=== PATIENT | female | born 2000 | race Caucasian/White ===

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

== ENCOUNTER 2019-12-29 23:31 | Emergency (ER) | payer BC ==
[2019-12-29 23:36] VITALS: BP 135/79; PULSE 95
[2019-12-30] MEDS: Phenazopyridine 95 MG Tab PO STA (00:07)
[2019-12-30] MEDS: Nitrofurantoin Monohydrate/Macrocrystalline 100 MG Cap PO STA (00:07)
--- NOTE | 2019-12-30 00:08 | EDM.PDOC ---
ED HPI GENERAL MEDICAL PROBLEM - General Chief Complaint: Genitourinary Problem Stated Complaint: burning with urination Time Seen by Provider: 12/29/19 23:53 Source of Information: Reports: Patient History Limitations: Reports: No Limitations - History of Present Illness INITIAL COMMENTS - FREE TEXT/NARRATIVE: This patient is a 19 year old female that presents to the ER with complaint of dysuria. She reports it started at 2pm today. She reports blood with wiping. Onset: Today Onset Date: 12/30/19 Onset Time: 14:00 Duration: Hour(s): (10) Quality: Reports: Burning Severity: Moderate Worsens with: Reports: Other (urination) Associated Symptoms: Reports: No Other Symptoms. Denies: Confusion, Chest Pain, Cough, cough w sputum, Diaphoresis, Fever/Chills, Headaches, Loss of Appetite, Malaise, Nausea/Vomiting, Rash, Seizure, Shortness of Breath, Syncope, Weakness Groin Pain Score (Numeric/FACES): 5 - Related Data Allergies Allergy/AdvReac Type Severity Reaction Status Date / Time No Known Allergies Allergy Verified 12/29/19 23:36 Home Meds: Home Meds Albuterol [IJD: Ventolin HFA] 1 puff INH ASDIRECTED PRN 12/20/15 [History] norgestimate-ethinyl estradioL [Sprintec 28 Day Tablet] 1 tab PO DAILY 12/29/19 [History] Nitrofurantoin Monohyd/M-Cryst [Macrobid 100 mg Capsule] 100 mg PO BID 7 Days #14 capsule 12/30/19 [Rx] Phenazopyridine [Pyridium] 100 mg PO TID PRN #6 tab 12/30/19 [Rx] Past Medical History - Past Health History Medical/Surgical History: Denies Medical/Surgical History Respiratory History: Reports: Other (See Below) Other Respiratory History: Reactive airway disease Psychiatric History: Reports: Anxiety, Depression Social & Family History - Family History Family Medical History: Noncontributory Cardiac: Reports: Hypertension - Tobacco Use Smoking Status *Q: Never Smoker - Caffeine Use Caffeine Use: Reports: None - Recreational Drug Use Recreational Drug Use: No - Sexual History Sexual History: Reports: None - Living Situation & Occupation Living situation: Reports: Single, with Family Occupation: Student ED ROS GENERAL - Review of Systems Review Of Systems: See Below Constitutional: Reports: No Symptoms HEENT: Reports: No Symptoms Respiratory: Reports: No Symptoms Cardiovascular: Reports: No Symptoms Endocrine: Reports: No Symptoms GI/Abdominal: Reports: Abdominal Pain. Denies: Nausea, Vomiting : Reports: Dysuria, Hematuria. Denies: Flank Pain Musculoskeletal: Reports: Back Pain Skin: Reports: No Symptoms Neurological: Reports: No Symptoms Psychiatric: Reports: No Symptoms Hematologic/Lymphatic: Reports: No Symptoms Immunologic: Reports: No Symptoms ED EXAM, RENAL/ - Physical Exam Exam: See Below Exam Limited By: No Limitations General Appearance: Alert, WD/WN, No Apparent Distress Eye Exam: Bilateral Eye: Normal Inspection, PERRL Ears: Normal External Exam, Normal Canal, Hearing Grossly Normal, Normal TMs Nose: Normal Inspection, Normal Mucosa, No Blood Throat/Mouth: Normal Inspection, Normal Lips, Normal Teeth, Normal Gums, Normal Oropharynx, Normal Voice, No Airway Compromise Head: Atraumatic, Normocephalic Neck: Normal Inspection, Supple, Non-Tender, Full Range of Motion Respiratory/Chest: No Respiratory Distress, Lungs Clear, Normal Breath Sounds, No Accessory Muscle Use Cardiovascular: Normal Peripheral Pulses, Regular Rate, Rhythm, No Edema, No Gallop, No JVD, No Murmur, No Rub GI/Abdominal: Normal Bowel Sounds, Soft, Non-Tender, No Organomegaly Back Exam: Normal Inspection. No: CVA Tenderness (L), CVA Tenderness (R) Extremities: Normal Inspection, Normal Range of Motion, Non-Tender, No Pedal Edema, Normal Capillary Refill Neurological: Alert, Oriented Psychiatric: Normal Affect, Normal Mood Skin Exam: Warm, Dry, Intact, Normal Color, No Rash Lymphatic: No Adenopathy Course - Vital Signs Last Recorded V/S: Last Vital Signs Temp 99.4 F 12/29/19 23:32 Pulse 95 12/29/19 23:32 Resp 18 12/29/19 23:32 BP 135/79 12/29/19 23:32 Pulse Ox 100 12/29/19 23:32 - Orders/Labs/Meds Orders: Active Orders 24 hr Category Date Time Status CULTURE URINE [RM] Stat Lab 12/29/19 23:44 Received Labs: Laboratory Tests 12/29/19 12/29/19 Range/Units 23:44 23:44 Urine Color Light yellow (YELLOW) Urine Appearance Slightly cloudy (CLEAR) Urine pH 6.5 (4.5-8.0) Ur Specific [place] 1.010 (1.003-1.020) Urine Protein 30 H (NEGATIVE) mg/dL Urine Glucose (UA) Negative (NEGATIVE) mg/dL Urine Ketones Negative (NEGATIVE) mg/dL Urine Occult Blood Large H (NEGATIVE) Urine Nitrite Negative (NEGATIVE) Urine Bilirubin Negative (NEGATIVE) Urine Urobilinogen 0.2 (0.2-1.0) EU/dL Ur Leukocyte Esterase Large H (NEGATIVE) Urine RBC 5-10 H (0-5) /HPF Urine WBC 75-100 H (0-5) /HPF Ur Epithelial Cells Few H (NOT SEEN) /HPF Urine Bacteria Few H (NOT SEEN) /HPF Urine HCG, Qual Negative Meds: Medications Discontinued Medications Generic Name Dose Route Start Last Admin Trade Name Freq PRN Reason Stop Dose Admin Nitrofurantoin Macrocrystals 100 mg 12/30/19 00:00 12/30/19 00:07 Macrobid PO 12/30/19 00:01 100 mg NOW STA Administration Phenazopyridine HCl 95 mg 12/30/19 00:00 12/30/19 00:07 Urinary Pain Relief PO 12/30/19 00:01 95 mg NOW STA Administration Departure - Departure Time of Disposition: 00:03 Disposition: Home, Self-Care 01 Condition: Fair Clinical Impression: UTI, Urinary tract infectious disease - Discharge Information *PRESCRIPTION DRUG MONITORING PROGRAM REVIEWED*: Not Applicable *COPY OF PRESCRIPTION DRUG MONITORING REPORT IN PATIENT ROBERT: Not Applicable Prescriptions: Nitrofurantoin Monohyd/M-Cryst [Macrobid 100 mg Capsule] 100 mg PO BID 7 Days #14 capsule Phenazopyridine [Pyridium] 100 mg PO TID PRN #6 tab PRN Reason: Dysuria Instructions: Urinary Tract Infection, Adult, [id number] Forms: ED Department Discharge Additional Instructions: Followup with your primary care provider in 2-3 days for recheck and to ensure your on the right antibiotic Return to the ER for worsening of condition or any emergent concerns such as fever, vomiting, increase in pain Macrobid 100mg 1 pill twice a day for 7 days #14 no refill Pyridium 100mg 1 pill three times a day for 2 days #6 no refill For burning with urination Increase water and cranberry juice intake Sepsis Event Note (ED) - Evaluation Sepsis Screening Result: No Definite Risk - Focused Exam Vital Signs: Vital Signs Temp Pulse Resp BP Pulse Ox 12/29/19 23:32 99.4 F 95 18 135/79 100 - My Orders Last 24 Hours: My Active Orders 12/29/19 23:44 CULTURE URINE [RM] Stat - Assessment/Plan Last 24 Hours: My Active Orders 12/29/19 23:44 CULTURE URINE [RM] Stat Plan: PLEASE SEE RN NOTE FOR PFSH
== END 2019-12-30 00:15 | disposition home or self-care (01) ==
LOC: CC.ED 23:31
DX: N39.0 Urinary tract infection, site not specified (principal); J45.909 Unspecified asthma, uncomplicated
CPT/HCPCS: 81001; 81025; 87086; 87088; 87186; 99283; A9270-GY